=== PATIENT | female | born 1960 | race Caucasian/White ===

== ENCOUNTER → 2016-10-20 | Outpatient (CLI) | payer OTHER | END | disposition home or self-care (01) | LOC: CFH 10:23 | PROVIDERS: ATTEND Obstetrics & Gynecology Gynecology | DX: Z12.31 Encounter for screening mammogram for malignant neoplasm of breast (principal) | CPT/HCPCS: 77063; G0202 ==

== ENCOUNTER 2017-06-12 18:17 | Emergency (ER) | payer OTHER ==
[~2017-06-12] VITALS: Ht 167.6 cm; Wt 100.3 kg
[2017-06-12] MEDS ORDERED: ASPIRIN 81 MG TABLET CHEW PO ONE (18:30)
[2017-06-12 18:53] LABS: HEMATOCRIT 42.4 % (34.6-47.8); HEMOGLOBIN 14.4 g/dL (11.7-16.4); WHITE BLOOD COUNT 6.4 x10^3/uL (3.4-10)
[2017-06-12] MEDS ORDERED: ASPIRIN 81 MG TABLET CHEW ONE (18:54)
[2017-06-12] MEDS ORDERED: PRAV10TA2 PO (19:02)
[2017-06-12] MEDS ORDERED: FLUO40CA9 PO (19:02)
[2017-06-12] MEDS ORDERED: OMEP-110 PO (19:02)
[2017-06-12 19:05] LABS: ASPARTATE AMINO TRANSFERASE 32 U/L (15-37); BLOOD UREA NITROGEN 19 mg/dL (7-18)
[2017-06-12 19:12] LABS: IS PT STATUS REG ER OR PRE ER? YES
[2017-06-12 19:59] VITALS: BP 134/86
== END 2017-06-12 20:01 | disposition home or self-care (01) ==
LOC: ED 19:55
DX: R06.00 Dyspnea, unspecified (principal); R05 Cough; K21.9 Gastro-esophageal reflux disease without esophagitis; F32.9 Major depressive disorder, single episode, unspecified; E78.5 Hyperlipidemia, unspecified
CPT/HCPCS: 36415; 71010; 80053; 83880; 84484; 85025; 93005; 99285

== ENCOUNTER → 2019-02-03 | Outpatient (CLI) | payer OTHER ==
[~2019-02-03] MED LIST: FLUO40CA9 PO; OMEP-110 PO; PRAV10TA2 PO
== END | disposition home or self-care (01) ==
LOC: CFH 12:39
PROVIDERS: ATTEND Obstetrics & Gynecology
DX: Z12.31 Encounter for screening mammogram for malignant neoplasm of breast (principal)
CPT/HCPCS: 77063; 77067

== ENCOUNTER 2019-02-23 12:30 | Inpatient (IN) | payer OTHER ==
[~2019-02-23] VITALS: Ht 167.6 cm; Wt 96.6 kg
[2019-02-25 22:09] VITALS: BP 116/78
== END 2019-02-25 22:42 | disposition home or self-care (01) | DRG 287 ==
LOC: ED 13:59 → EDIP 17:32 → INTOOBSV 17:32 → 5SO 18:50 → OBSVTOIN 02-25 09:39
PROVIDERS: ADMIT Internal Medicine; ATTEND Internal Medicine
PROC: 4A023N7 Measurement of Cardiac Sampling and Pressure, Left Heart, Percutaneous Approach (ICD-10-PCS; principal; 2019-02-25)
PROC: B2111ZZ Fluoroscopy of Multiple Coronary Arteries using Low Osmolar Contrast (ICD-10-PCS; 2019-02-25)
PROC: B2151ZZ Fluoroscopy of Left Heart using Low Osmolar Contrast (ICD-10-PCS; 2019-02-25)
DX: R07.89 Other chest pain (principal); F33.9 Major depressive disorder, recurrent, unspecified; M54.2 Cervicalgia; M54.9 Dorsalgia, unspecified; G89.29 Other chronic pain; E78.1 Pure hyperglyceridemia; I77.819 Aortic ectasia, unspecified site; E78.5 Hyperlipidemia, unspecified; E66.01 Morbid (severe) obesity due to excess calories; K21.9 Gastro-esophageal reflux disease without esophagitis; R73.03 Prediabetes; Z87.891 Personal history of nicotine dependence; Z82.49 Family history of ischemic heart disease and other diseases of the circulatory system; Z83.3 Family history of diabetes mellitus; Z90.49 Acquired absence of other specified parts of digestive tract; Z68.34 Body mass index [BMI] 34.0-34.9, adult
CPT/HCPCS: 36415; 71275; 80048; 80061; 82040; 83880; 84484; 85025; 93005; 93017; 93306; 93312; 93321; 93325; 93458; 99156; 99291; C1769; C1894; G0378; J0583; J1644; J1650; J2250; J3010; Q9967

== ENCOUNTER 2019-07-30 10:13 | Emergency (ER) | payer OTHER ==
[~2019-07-30] VITALS: Ht 167.6 cm; Wt 98.7 kg
[~2019-07-30 10:13] MED LIST changes: +ASPI-515 PO; +FENO145T19 PO; +IBUP-1221 PO
[2019-07-30 11:31] LABS: BASOPHILS % (AUTO) 0 % (0-1); EOSINOPHILS # (AUTO) 0.01 x10^3/uL (0-0.4); EOSINOPHILS % (AUTO) 0 % (1-7); LYMPHOCYTES # (AUTO) 0.87 x10^3/uL (1-3.4); LYMPHOCYTES % (AUTO) 9 % (22-44); MD NO; MEAN CORPUSCULAR HEMOGLOBIN 29.2 pg (27.0-34.8); MEAN CORPUSCULAR HGB CONC 33.7 g/dL (32.4-35.8); MEAN CORPUSCULAR VOLUME 86.7 fL (80-100); MEAN PLATELET VOLUME 8.5 fL (7.4-10.4); MONOCYTES # (AUTO) 0.72 x10^3/uL (0.2-0.8); MONOCYTES % (AUTO) 7 % (2-9); NEUTROPHILS # (AUTO) 8.68 x10^3/uL (1.8-6.8); NEUTROPHILS % (AUTO) 84 % (42-75); PLATELET COUNT 213 x10^3/uL (130-400); RED BLOOD COUNT 5.19 x10^6/uL (3.82-5.3); RED CELL DISTRIBUTION WIDTH 14.5 % (9.6-15.2)
[2019-07-30 11:42] LABS: ALBUMIN 3.8 g/dL (3.4-5.0); ANION GAP 6 mmol/L (5-15); CALCIUM 9.3 mg/dL (8.5-10.1); CHLORIDE 106 mmol/L (98-107)
[2019-07-30 11:46] LABS: ALANINE AMINOTRANSFERASE 71 U/L (12-78); ALKALINE PHOSPHATASE 96 U/L (45-117); BILIRUBIN,TOTAL 0.9 mg/dL (0.2-1.0); CREATININE 1.14 mg/dL (0.55-1.02)
--- NOTE | 2019-07-30 13:21 | NUR ---
TO ROOM FROM LOBBY. NAD.
--- NOTE | 2019-07-30 13:28 | NUR ---
PT AMBULATED TO BR WITH STEADY GAIT. UA COLLECTED AND SENT TO LAB.
--- NOTE | 2019-07-30 13:34 | NUR ---
PT WITH C/O ABDOMINAL CRAMPING FOR "A WHILE" PT STATES SHE WAS SEEN BY HER PCP AND WAS TOLD SHE HAD "MEDICATION INDUCED LUPUS" PT STATES SHE IS ONLY TAKING 3 MEDICATIONS AND DOESNT UNDERSTAND THE DIAGNOSIS. PT DENIES N/V/D. PT TO BP, CONT PULSE OX
[2019-07-30 13:50] LABS: MICROSCOPIC INDICATED
[2019-07-30 14:40] VITALS: BP 125/56
--- NOTE | 2019-07-30 14:41 | NUR ---
PT PLACED FOR RECHECK, PT UPDATED ON POC
--- NOTE | 2019-07-30 15:27 | NUR ---
PT TO GO TO CT, PIV INITIATED, PT UPDATED ON POC, NAD NOTED, VSS
[2019-07-30] MEDS ORDERED: OMNIPAQUE 350 MG/ML, 100ML BOTTLE ONE (16:01)
== END 2019-07-30 17:03 | disposition home or self-care (01) ==
LOC: ED 16:15 → SUATTDRO 16:57 → ED 17:03
PROVIDERS: ATTEND Hospitalist
DX: K57.32 Diverticulitis of large intestine without perforation or abscess without bleeding (principal); Z90.49 Acquired absence of other specified parts of digestive tract
CPT/HCPCS: 36415; 74021; 74177; 80053; 81001; 83690; 85025; 87086; 99284; Q9967